=== PATIENT | female | born 1965 | race Caucasian/White ===

== ENCOUNTER → 2016-07-22 | Outpatient (CLI) | payer BC ==
--- NOTE | 2016-07-24 10:27 | MM ---
Reason for exam: screening (asymptomatic). Last mammogram was performed 1 year and 2 months ago. History: Took hormonal contraceptives for 10 years beginning at age 18. Physical Findings: A clinical breast exam by your physician is recommended on an annual basis and results should be correlated with mammographic findings. MG Screening Mammo w CAD Bilateral CC and MLO view(s) were taken. Prior study comparison: May 22, 2015, bilateral MG screening mammo w CAD. May 17, 2013, bilateral digital screening mammo w/CAD. The breast tissue is heterogeneously dense. This may lower the sensitivity of mammography. There is no discrete abnormality. No significant changes when compared with prior studies. ASSESSMENT: Negative, BI-RAD 1 RECOMMENDATION: Routine screening mammogram of both breasts in 1 year.
== END | disposition home or self-care (01) ==
LOC: RADMAMWWP 12:19
PROVIDERS: ATTEND Family Medicine
DX: Z12.31 Encounter for screening mammogram for malignant neoplasm of breast (principal)

== ENCOUNTER → 2016-08-01 | Outpatient (CLI) | payer BC ==
--- NOTE | 2016-08-02 07:34 | WWHP ---
DATE OF SERVICE: 08/01/2016 CHIEF COMPLAINT: The patient is here for her routine gynecologic exam. HPI: This is a 51-year-old G3, P3 with an LMP of 06/05/16. She states her periods have been somewhat infrequent and unpredictable while she has been on Depo-Provera. She has been on Depo-Provera for about one year and her last injection was in 06/02. Periods have been about every 1 to 3 months during the past year. They have been relatively light as well. It has been about 3 years since her last pelvic exam. She did have a mammogram done on 07/22/16 which was negative. She is without gynecologic complaints. PAST MEDICAL HISTORY: Chronic hypertension, gastroesophageal reflux disease, hypothyroidism and she has had occasional PVCs in the past. She also had a history of kidney stones years ago and elevated cholesterol. MEDICATIONS: 1. Omeprazole 20 mg daily. 2. Black cohosh 40 mg daily. 3. Levothyroxine 25 mcg daily. 4. Magnesium 500 mg daily. 5. Atorvastatin 20 mg daily. 6. Atenolol with hydrochlorothiazide 50/25 one daily. PAST MEDICAL HISTORY: Elevated cholesterol. Allergies to ERYTHROMYCIN which caused chest pain. PAST SURGICAL HISTORY: section in 1988. PAST OB HISTORY: One section followed by 2 vaginal deliveries. PAST AGRONOMY ADVISOR HISTORY: She has no history of STDs. SOCIAL HISTORY: She denies tobacco and drug use and has about 2 to 3 alcoholic drinks per week. She is and has been with her current boyfriend for 4 months but does not live with him. She has not had any other sexual partner since her divorce. 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 FAMILY HISTORY: Grandmother had pancreatic cancer. Father had liver cancer. Mother has vascular disease and brother had a CVA. REVIEW OF SYSTEMS: She has lost about 25 pounds during the last year and she states she has done this intentionally with diet and exercise. She denies respiratory, cardiac, or GI problems. PHYSICAL EXAM: Blood pressure 119/77. Height 6 feet 0 inches. Weight 126 pounds. Temperature 98.5, pulse 77. This a well-developed thin white female who is alert and oriented x3 in no acute distress. HEENT is within normal limits. NECK: Supple without mass or thyromegaly. CHEST AND LUNGS: Clear to auscultation. HEART: Regular rate and rhythm. Breasts are without mass or discharge. Axillary exam is negative for adenopathy. BACK: Negative for CVA tenderness. ABDOMEN: Soft, nontender, without palpable masses. PELVIC EXAM: Normal external genitalia. Cervix and vagina appear normal. The cervix is slightly stenotic. There is no evidence of prolapse. The uterus is mid to anterior, nongravid size and nontender. There are no palpable adnexal masses or tenderness. Rectovaginal exam is negative for mass or tenderness and is negative for occult blood. EXTREMITIES: Nontender. IMPRESSION: 1. A 51-year-old female who is premenopausal and possibly perimenopausal who is currently using Depo-Provera for control. 2. Normal gynecologic exam. PLAN: 1. Pap smear was performed. 2. Self breast examination was discussed. 3. Mammogram was done earlier this month and was negative. This will be repeated in one year. 4. We have discussed control options. I do not think Depo-Provera would be the best control option because of possible greater risk for bone strength loss. It will also be more difficult to know when she does go through the menopausal change. She would like to go on oral contraception. Because of her chronic hypertension history, we will use a progestin only pill. She will be started on Micronor 1 pill daily and she will start this next month when she was due for her Depo-Provera. She will discontinue Depo-Provera. We have talked about timing of this pill and I have recommended that she take this prior to dinner time for maximum effectiveness. If she is late or has missed a pill, I have recommended that she use condoms. 5. Osteoporosis prevention was discussed. 6. She will return in one year. A prescription for the upcoming year was given to the patient.
== END | disposition home or self-care (01) ==
LOC: WWCWWP 09:48
PROVIDERS: ATTEND Obstetrics & Gynecology
DX: Z53.9 Procedure and treatment not carried out, unspecified reason (principal)